=== PATIENT | male | born 1960 | race Caucasian/White ===

== ENCOUNTER 2022-08-27 23:42 | Emergency (ER) | payer OTHER ==
[~2022-08-27] VITALS: Ht 167.6 cm; Wt 105.7 kg
[2022-08-27 23:54] VITALS: BP_SYST 167
--- NOTE | 2022-08-27 23:55 | NUR ---
Patient triaged and placed in waiting room. VSS and patient appears in no acute distress at this time. Accompanied by partner, awaiting available bed, and MD notified of need for MSE.
--- NOTE | 2022-08-28 00:07 | NUR ---
MD WITH PATIENT IN TRIAGE FOR MSE.
[2022-08-28] MEDS ORDERED: HYDR50TA61 PO (00:20)
[2022-08-28] MEDS ORDERED: TRIA80OI TP (00:20)
[2022-08-28] MEDS ORDERED: SULF1TAB48 PO (00:20)
[2022-08-28] MEDS ORDERED: PRED50TA PO (00:20)
[2022-08-28 00:41] VITALS: BP_SYST 167
--- NOTE | 2022-08-28 00:41 | NUR ---
Patient given written and verbal discharge instructions and verbalizes understanding. ER DR. QUIÑONES discussed with patient the results and treatment provided. Patient in stable condition. ID arm band removed. Rx of hydroxyzine, prednisone, bactrim, and triamcinolone acetonide given. Patient educated on pain management and to follow up with PMD. Pain Scale 0. Opportunity for questions provided and answered. Medication side effect fact sheet provided.
== END 2022-08-28 00:41 | disposition home or self-care (01) ==
LOC: SED 23:42
DX: L25.9 Unspecified contact dermatitis, unspecified cause (principal); R21 Rash and other nonspecific skin eruption; Z79.899 Other long term (current) drug therapy
CPT/HCPCS: 99283